=== PATIENT | male | born 1955 | race Caucasian/White ===

== ENCOUNTER → 2024-07-30 10:41 | Outpatient (REF) | payer MEDICARE, OTHER, SELFPAY | LOC: REG 10:41 | PROVIDERS: ATTENDING PHYSICIAN Family Medicine | DX: M25.561 Pain in right knee (principal) | CPT/HCPCS: 73564 ==

== ENCOUNTER → 2024-11-01 09:38 | Outpatient (REF) | payer MEDICARE, SELFPAY | LOC: REG 09:38 | PROVIDERS: ATTENDING PHYSICIAN Family Medicine | DX: F25.9 Schizoaffective disorder, unspecified (principal) | CPT/HCPCS: 93005 ==

== ENCOUNTER 2024-11-06 16:49 | Inpatient (IN) | payer MEDICARE, OTHER, SELFPAY ==
[2024-11-06] VITALS (11 sets, daily range): BP systolic 137–174; BP diastolic 66–139
--- NOTE | 2024-11-06 12:59 | ED.GENMED ---
History of Present Illness
General
Chief Complaint: Cough
Source: patient and records
Time Seen by Provider: 11/06/24 12:55
History of Present Illness
History of Present Illness:
69-year-old male with past medical history of schizoaffective disorder and traumatic brain injury, previous alcohol abuse presenting to the ER from his care facility for evaluation of cough, increased blood pressure, fatigue and generalized weakness
over the last 24 hours. Patient reportedly recently eloped from the facility and had been living in the [facility]. Presently patient has no concerns other than stating 'I feel as if I am broken everywhere'. Patient denies any chest pain,
palpitations, shortness of breath, exertional dyspnea, orthopnea, reported fevers or chills, abdominal pain, nausea, vomiting or any other concerns.
Past History
Past History
ED Past Medical History: Psychiatric
ED Past Surgical History: None
Social History
Tobacco: Former smoker
Alcohol: Former
Drug: None
Personal: Single
Living: [facility]
Review of Systems
Review of Systems
All Other Systems: ROS reviewed and negative except as documented in HPI and ROS
Phy Exam
Physical Exam
Physical Exam:
GENERAL: Alert , in no apparent distress, appears older than stated age
HEAD: Normocephalic atraumatic
EYE: conjunctiva clear
NECK: Supple
ENT: o/p clr, mmm.
CARDIAC: Regular rate and rhythm
LUNGS: Rhonchorous lung sounds right mid to upper lung, no acute respiratory distress, no wheezes/rales
NEUROLOGICAL: Alert and oriented
SKIN: Warm and dry, skin intact.
MUSCULOSKELETAL: well perfused.
PSYCH: Normal and appropriate interaction.
Scores
Heart Failure Risk
Heart Failure Risk Score: Not Applicable
Heart Score for Chest Pain Patients
STEMI patient?: Not applicable
Withdrawal Assessment of Alcohol
Withdrawal Assessment Completed?: Not applicable
Course
Orders/Labs/Results
Orders:
Orders
11/06/24 12:50
Complete Blood Count/With Diff Urgent
Comprehensive Metabolic Panel Urgent
Glycohemoglobin (HgbA1c) Urgent
Lyme Progressive Urgent
11/06/24 12:56
CR Chest - 2 Views Urgent
Comment:
Reason For Exam: cough
11/06/24 13:10
COVID-19 Antigen Urgent
Source: Nasal Swab
Influenza A+B Rapid Molecular Urgent
KITA Source: Nasal Swab
Specimen Description:
11/06/24 15:36
Cefepime HCl [Maxipime] 2,000 mg IV NOW STA
Sterile Water [Sterile Water For Injection] 10 ml IV ONCE@1536 ONE
11/06/24 15:40
Add On- LAB Urgent
Tests Added?: [id number]
11/06/24 15:45
Ipratropium/Albuterol Sulfate [Duoneb] 3 ml INH R NOW ONE
11/06/24 15:46
Cefepime HCl [Maxipime] 2,000 mg .ROUTE .STK-MED ONE
11/06/24 16:00
Flush (0.9% Sodium Chloride) [Flush (Nss)] See Dose Instructions IV PER PROTOCOL
Abnormal Lab Results
11/06/24
12:50
WBC 16.6 H 10^3/uL
(4.8-10.8)
MCHC 32.3 L g/dL
(33.0-37.0)
RDW 14.8 H %
(11.5-14.5)
Abs Immat Gran (auto) 0.1 H 10^3/uL
(0-0.05)
Absolute Neuts (auto) 13.2 H 10^3/uL
(1.4-6.5)
Absolute Lymphs (auto) 1.1 L 10^3/uL
(1.2-3.4)
Absolute Monos (auto) 1.9 H 10^3/uL
(0.1-0.6)
Neutrophils % 79.9 H %
(42.2-75.2)
Lymphocytes % 6.8 L %
(20.5-51.1)
Monocytes % 11.6 H %
(1.7-9.3)
Creatinine 0.6 L mg/dL
(0.7-1.3)
Glucose 200 H mg/dl
(70-99)
11/06/24 12:50
11/06/24 12:50
Vital Signs
Initial and Last Documented VS:
Initial Vital Signs
Temp Pulse Resp BP Pulse Ox
98.2 F 86 18 162/139 100
11/06/24 12:51 11/06/24 12:51 11/06/24 12:51 11/06/24 12:51 11/06/24 12:51
Last Documented Vital Signs
Temp Pulse Resp BP Pulse Ox
98.2 F 86 18 161/83 99
11/06/24 12:51 11/06/24 12:51 11/06/24 12:51 11/06/24 15:00 11/06/24 15:00
MDM/Problems Addressed
Differential Diagnosis Includes:
COVID, flu, pneumonia, viral syndrome, bronchitis, Lyme, less concern for PE
MDM/Problems Addressed:
69-year-old male presenting to the emergency department for evaluation of reported cough and generalized fatigue over the last 24 hours. No cough appreciated on exam here. Otherwise hemodynamically stable. Will check labs, COVID/flu and chest
x-ray. Disposition pending
Chronic conditions affecting care: Psychiatric illness
*Radiology
Radiology exam reviewed: preliminary read by ED provider (Questionable left lower lobe lung infiltrate)
*Pulse Oximetry
Patient hypoxic: no
*Critical Care Note
Total Time (30-74mins, 75-104mins- exclusive of procedures): Not Applicable
Data Reviewed
Review of Other/Old Records Reveals: Records
Patient Management
Discussion with other providers: Hospitalist
Escalation/DeEscalation of care consider admission/obs:
Patient's chest x-ray shows a suspected left lower lung infiltrate. On reevaluation he is now having a more pronounced cough combined with wheezing. Given his leukocytosis combined with past medical history of COPD we will plan for IV antibiotics
with Maxipime and admission to hospitalist service. I did also order the patient a DuoNeb breathing treatment.
ED Attending Note
-
Portions of this chart may have been created with voice recognition software.� Occasional wrong word or��sound alike� substitutions may have occurred due to the inherent limitations of voice recognition software.
Discharge Plan
Departure
Patient Disposition: Admit
Date of Disposition: 11/06/24
Time of Disposition: 15:29
Presentation/result/management discussed w/ accepting MD/DO: Hospitalist
Discharge Problem:
Pneumonia, Acute exacerbation of chronic obstructive pulmonary disease
Prescriptions:
No Action
polyethylene glycol 3350 [Miralax] 17 gram Powder In Packet
17 g PO DAILYPRN PRN (Reason: constipation)
alendronate [Fosamax] 70 mg Tablet
70 mg PO WE
clonazepam 0.5 mg Tablet
0.5 mg PO BID
hydroxyzine pamoate 50 mg Capsule
50 mg PO HS
levothyroxine [Synthroid] 100 mcg Tablet
100 mcg PO DAILY
mirtazapine 15 mg Tablet
15 mg PO HS
alum-mag hydroxide-simeth [Kelly-Lanta] 200-200-20 mg/5 mL Suspension
15 ml PO DAILYPRN PRN (Reason: gi upset)
lithium carbonate 300 mg Tablet
300 mg PO HS
aripiprazole [Abilify] 30 mg Tablet
30 mg PO DAILY
bupropion HCl [Wellbutrin XL] 150 mg Tablet Extended Release 24 Hr
150 mg PO DAILY
clozapine 50 mg Tablet
50 mg PO HS
Calcium Plus Vitamin D3 250 mg tablet
1 tab PO BID
Rx Instructions:
250mg and d3 125mg
acetaminophen [Tylenol] 325 mg Tablet
650 mg PO Q6HPRN PRN (Reason: mild pain)
clonazepam 1 mg Tablet
0.5 mg PO BIDPRN PRN (Reason: anixety)
Referrals:
UNKNOWN,NO INTERVIEW [Family Provider] -
Interventions
Interventions:
*General Assessment Last Done: 11/06/24 12:51
*Neglect/Abuse Screening Last Done: 11/06/24 12:51
*ED- Fall Risk Assessment Last Done: 11/06/24 14:59
*ED COVID-19 Vaccine History Last Done: 11/06/24 12:51
ED- Pulmonary Assessment Last Done: 11/06/24 12:51
Discharge Date and Time
Print Language: WOLOF
[2024-11-06 13:28] LABS: % Basophils 0.4 % (0-2); % Eosinophils 0.8 % (0-6); % Immature Granulocytes 0.5 % (0-0.5); % Lymphocytes 6.8 % (20.5-51.1); % Monocytes 11.6 % (1.7-9.3); % Neutrophils 79.9 % (42.2-75.2); Absolute Basophils 0.1 10^3/uL (0-0.2); Absolute Eosinophils 0.1 10^3/uL (0-0.7); Absolute Immature Granulocytes 0.1 10^3/uL (0-0.05); Absolute Lymphocytes 1.1 10^3/uL (1.2-3.4); Absolute Monocytes 1.9 10^3/uL (0.1-0.6); Absolute Neutrophils 13.2 10^3/uL (1.4-6.5); Hematocrit 40.6 % (39.0-52.0); Hemoglobin 13.1 g/dL (13.0-18.0); Mean Corp Hgb Conc. 32.3 g/dL (33.0-37.0); Mean Corpuscular Hgb 27.1 pg (27.0-31.0); Mean Corpuscular Volume 83.9 fL (80.0-94.0); Mean Platelet Volume 9.7 fL (7.4-10.4); Nucleated Red Blood Cells % 0 % (-); Platelet Count 231 10^3/uL (130-400); Red Blood Cell Count 4.84 10^6/uL (4.70-6.10); Red Cell Dist. Width 14.8 % (11.5-14.5); White Blood Cell Count 16.6 10^3/uL (4.8-10.8)
[2024-11-06 13:50] LABS: ALT (SGPT) 25 U/L (0-50); AST (SGOT) 28 U/L (17-59); Alkaline Phosphatase 96 U/L (38-126); Blood Urea Nitrogen 13 mg/dl (9-20); Calcium 9.6 mg/dl (8.4-10.2); Carbon Dioxide 24 mmol/L (22-30); Chloride 102 mmol/L (98-107); Glucose 200 mg/dl (70-99); Potassium 4.9 mmol/L (3.5-5.1); Sodium 138 mmol/L (135-145); Total Bilirubin 0.7 mg/dl (0.2-1.3); Total Protein 6.9 g/dl (6.3-8.2); eGFR > 60.00
[2024-11-06 13:55] LABS: COVID-19 Antigen Negative (Negative)
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
[2024-11-06] MEDS: DUONEB 3 ML INH ×2 (15:43→20:04)
[2024-11-06] MEDS: STERILE WATER FOR INJECTION 10 ML IV (15:43)
[2024-11-06] MEDS: MAXIPIME 2000 MG IV (15:46)
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
[2024-11-06] MEDS: LOVENOX 40 MG SC (19:43)
[2024-11-06] MEDS: VIBRAMYCIN 260 MG IV (19:43)
[2024-11-06] MEDS: OSCAL 500 + D 250 MG PO (20:40)
[2024-11-06] MEDS: KLONOPIN 0.5 MG PO (20:43)
[2024-11-06 21:22] LABS: Lithium 0.3 mmol/L (0.6-1.2); Magnesium 1.9 mg/dl (1.6-2.3)
[2024-11-06 21:48] LABS: TSH Reflex To Free T4 0.56 uIU/ml (0.47-4.68)
[2024-11-06] MEDS: ATARAX 50 MG PO (22:52)
[2024-11-06] MEDS: ESKALITH REGULAR RELEASE 300 MG PO (22:54)
[2024-11-06] MEDS: CLOZARIL 50 MG PO (22:54)
[2024-11-06] MEDS: REMERON 15 MG PO (22:55)
[2024-11-07] MEDS: SYNTHROID 100 MCG PO (06:00)
[2024-11-07] MEDS: FOSAMAX 70 MG PO (06:01)
[2024-11-07 06:04] VITALS: BP 139/76
[2024-11-07] MEDS: MAXIPIME 1000 MG IV (06:47)
[2024-11-07] MEDS: STERILE WATER FOR INJECTION 10 ML IV ×2 (06:50→10:53)
[2024-11-07] MEDS: VIBRAMYCIN 260 MG IV (06:53)
[2024-11-07 07:09] LABS: % Basophils 0.3 % (0-2); % Immature Granulocytes 0.7 % (0-0.5); % Lymphocytes 9.6 % (20.5-51.1); % Monocytes 13.3 % (1.7-9.3); % Neutrophils 75.1 % (42.2-75.2); Absolute Basophils 0.1 10^3/uL (0-0.2); Absolute Eosinophils 0.2 10^3/uL (0-0.7); Absolute Immature Granulocytes 0.1 10^3/uL (0-0.05); Absolute Lymphocytes 1.7 10^3/uL (1.2-3.4); Absolute Monocytes 2.3 10^3/uL (0.1-0.6); Absolute Neutrophils 13.2 10^3/uL (1.4-6.5); Hematocrit 36.2 % (39.0-52.0); Hemoglobin 12.2 g/dL (13.0-18.0); Mean Corp Hgb Conc. 33.7 g/dL (33.0-37.0); Mean Corpuscular Hgb 26.9 pg (27.0-31.0); Mean Corpuscular Volume 79.9 fL (80.0-94.0); Mean Platelet Volume 9.8 fL (7.4-10.4); Nucleated Red Blood Cells % 0 % (-); Platelet Count 225 10^3/uL (130-400); Red Blood Cell Count 4.53 10^6/uL (4.70-6.10); Red Cell Dist. Width 14.4 % (11.5-14.5); White Blood Cell Count 17.6 10^3/uL (4.8-10.8)
[2024-11-07 07:24] LABS: ALT (SGPT) 24 U/L (0-50); AST (SGOT) 25 U/L (17-59); Alkaline Phosphatase 96 U/L (38-126); Blood Urea Nitrogen 15 mg/dl (9-20); Carbon Dioxide 22 mmol/L (22-30); Chloride 104 mmol/L (98-107); Glucose 148 mg/dl (70-99); Potassium 4.7 mmol/L (3.5-5.1); Sodium 137 mmol/L (135-145); Total Bilirubin 0.9 mg/dl (0.2-1.3); Total Protein 6.6 g/dl (6.3-8.2); eGFR > 60.00
[2024-11-07] MEDS: DUONEB 3 ML INH ×3 (07:40→14:51)
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
[2024-11-07 08:55] LABS: Glycohemoglobin (HgbA1c) 5.9 % (4.0-5.6)
[2024-11-07] MEDS: WELLBUTRIN XL (24 hour extended release) 150 MG PO (08:55)
[2024-11-07] MEDS: KLONOPIN 0.5 MG PO ×2 (08:55→21:04)
[2024-11-07] MEDS: OSCAL 500 + D 250 MG PO ×2 (08:55→21:05)
[2024-11-07 09:01] VITALS: BP 148/75
[2024-11-07] MEDS: ABILIFY 30 MG PO (09:08)
[2024-11-07 09:14] VITALS: BP 148/75
[2024-11-07] MEDS: ROCEPHIN 1000 MG IV (10:52)
--- NOTE | 2024-11-07 11:01 | WOUNDNOTE ---
[facility] RN note: Patient admitted with pneumonia
See H&P for complete history.
PMH: Traumatic amputation of left arm, osteoporosis, ETOH, schizoaffective disorder, pica.
Wound Location and type/assessment: Patient admitted with left hip stage 1 PI. Patient is a poor historian regarding his appetite. He declined to turn or participate in assessment.
Pressure redistribution devices in place: Bed ordered from [facility], pref air bed if possible, patient declines further interventions for off-loading.
Plan: Left hip wound covered with foam. TT Dr. Foster to update that patient had refused full skin assessment and that a bed was ordered for him. RN, Kentrell given update. Updated care plan and will follow as needed.
Note to case management of equipment requested for discharge:
Recommend follow up at wound care center upon discharge.
[2024-11-07 11:21] VITALS: BP 155/77
--- NOTE | 2024-11-07 14:13 | CM ---
Addendum entered by Ksenia Dejesus 11/07/24 14:59:
Family Physician: Asif Salmeron DO; [address] [place] [address], [place] [address]
Left a voice mail for Admissions Office to update health record
Original Note:
Patient resides in a nursing home:
[facility]
[address] [facility];

Pharmacy verified: [facility], [address], [place] [address], [place] [address];
Family Physician: Asif Salmeron DO; [address] [place] [address], [id number]
Per caregiver/RN, Kasey, patient has private single room/bedroom; residents share bathroom; Independent w/ Personal Care but needs Prompting
PLOF: ambulated without a device; able to go up/down stairs if needed; they keep him on the 1st floor (Elopement Risk)
No DME
No SNF history
Transport: Ambulance
If medications are changed, requested that member of care team call [facility] Nursing staff before discharged @ # [phone]
Plan: Return to [facility] when medically stable via ambulance
[2024-11-07 16:20] VITALS: BP 163/85; BMI 15.9
[2024-11-07] MEDS: LOVENOX 40 MG SC (17:34)
[2024-11-07] MEDS: DUONEB INH (20:11)
[2024-11-07] MEDS: ESKALITH REGULAR RELEASE 300 MG PO (21:04)
[2024-11-07] MEDS: VIBRAMYCIN 100 MG PO (21:04)
[2024-11-07] MEDS: ATARAX 50 MG PO (21:07)
[2024-11-07] MEDS: REMERON 15 MG PO (21:07)
[2024-11-07] MEDS: CLOZARIL 50 MG PO (21:15)
[2024-11-07 23:10] VITALS: BP 142/74
[2024-11-08] MEDS: SYNTHROID 100 MCG PO (05:49)
[2024-11-08 07:31] LABS: % Basophils 0.3 % (0-2); % Eosinophils 1.3 % (0-6); % Immature Granulocytes 0.6 % (0-0.5); % Lymphocytes 9.9 % (20.5-51.1); % Monocytes 11.5 % (1.7-9.3); % Neutrophils 76.4 % (42.2-75.2); Absolute Basophils 0.1 10^3/uL (0-0.2); Absolute Eosinophils 0.2 10^3/uL (0-0.7); Absolute Immature Granulocytes 0.1 10^3/uL (0-0.05); Absolute Lymphocytes 1.7 10^3/uL (1.2-3.4); Absolute Neutrophils 13.2 10^3/uL (1.4-6.5); Hematocrit 37.5 % (39.0-52.0); Hemoglobin 12.4 g/dL (13.0-18.0); Mean Corp Hgb Conc. 33.1 g/dL (33.0-37.0); Mean Corpuscular Hgb 27.4 pg (27.0-31.0); Mean Platelet Volume 9.9 fL (7.4-10.4); Nucleated Red Blood Cells % 0 % (-); Platelet Count 270 10^3/uL (130-400); Red Blood Cell Count 4.52 10^6/uL (4.70-6.10); Red Cell Dist. Width 14.4 % (11.5-14.5); White Blood Cell Count 17.3 10^3/uL (4.8-10.8)
[2024-11-08 07:59] LABS: ALT (SGPT) 21 U/L (0-50); AST (SGOT) 21 U/L (17-59); Albumin 3.6 g/dl (3.5-5.0); Alkaline Phosphatase 97 U/L (38-126); Blood Urea Nitrogen 17 mg/dl (9-20); Calcium 9.3 mg/dl (8.4-10.2); Carbon Dioxide 28 mmol/L (22-30); Chloride 101 mmol/L (98-107); Estimated Creatinine Clearance 76 ml/min; Glucose 126 mg/dl (70-99); Potassium 4.3 mmol/L (3.5-5.1); Sodium 137 mmol/L (135-145); Total Bilirubin 0.9 mg/dl (0.2-1.3); Total Protein 6.5 g/dl (6.3-8.2); eGFR > 60.00
[2024-11-08 08:00] VITALS: BP 125/66
[2024-11-08] MEDS: DUONEB 3 ML INH ×4 (08:02→19:30)
[2024-11-08] MEDS: VIBRAMYCIN 100 MG PO ×2 (08:39→20:00)
[2024-11-08] MEDS: ABILIFY 30 MG PO (08:39)
[2024-11-08] MEDS: OSCAL 500 + D 250 MG PO ×2 (08:39→19:59)
[2024-11-08] MEDS: WELLBUTRIN XL (24 hour extended release) 150 MG PO (08:39)
[2024-11-08] MEDS: KLONOPIN 0.5 MG PO ×2 (08:40→19:58)
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
--- NOTE | 2024-11-08 10:41 | PN.CDI ---
CDI
- -
CDI:
Physician Documentation Request
Admit Date: 11/06/24 16:49
Dear Doctor Kristin,
Patient admitted for pneumonia. Progress noes include a diagnosis of 'Left hip stage I ulcer'
Physician documentation of the type and location of wounds is required for compliant documentation. Based on the above clinical findings and your assessment, please provide the following in your progress note:
Type (etiology) of ulcer:
- Diabetic ulcer
- Traumatic wound
- Pressure (decubitus) ulcer
- Other
Use of terms such as suspected, likely, concern for, or probable (associated with a specific diagnosis that is being evaluated, monitored, or treated as if it exists) are acceptable and can be coded in the inpatient setting, when documented at the
time of discharge.
Thank you,
Leigh LEARYN
CDI Specialist
tiger text
Please use your independent medical judgment in providing your response.
*Source: National Pressure Ulcer Advisory Panel (NPUAP)
[2024-11-08 12:06] LABS: Glucose - Point of Care 154 mg/dl (70-99)
[2024-11-08 12:11] LABS: Lyme Antibody Screen, EIA Negative (Negative)
[2024-11-08] MEDS: STERILE WATER FOR INJECTION 10 ML IV (12:35)
[2024-11-08] MEDS: ROCEPHIN 1000 MG IV (12:36)
--- NOTE | 2024-11-08 13:08 | PTCARENOTE ---
11/08/2024 DIABETES EDUCATION
I met with patient per MD request for monitor instruction. Explained to patient that his A1c and glucose values are diagnostic of pre-DM. Educated him to watch intake of excess carbohydrates and sweets. Patient did no seem to understand all that
I was explaining. I asked if he has an aide at home who helps him, he stated yes but then asked 'do I have a home'. I informed patient I am provided a glucose monitoring kit for his home use, asked that his aide help him administer, as he cannot
perform fingerstick due to L. arm amputation. and RN notified.
[2024-11-08] MEDS: NOVOLOG FLEXPEN-LOW RESISTANCE 1 UNITS SC (14:00)
--- NOTE | 2024-11-08 14:03 | CM ---
CM reviewed the chart notes and spoke with Selena nurse at [facility] where the patient resides. Discussed patient functional mobility prior to hospitalization. Patient is usually ambulatory without devise. Is difficult to motivate. What they
have found to assist in motivation is soda and chocolate cupcakes. Patient is a smoker, attending notified. 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 Patient does have chronic pain
in his knees and requires Tylenol daily. Patient resists assistance with most tasks. [facility] does not accept patients over weekend. Patient will need to be more mobile to return to residence. CM continues to be available to patient/family
and is monitoring medical plan for needs at discharge.
Plan: Discharge back to [facility] once medically stable and is able to ambulate at most with a cane.
[2024-11-08] MEDS: NICODERM TRANSDERMAL 14 MG TRANSDERM (14:51)
[2024-11-08 14:52] VITALS: BMI 15.9
[2024-11-08 16:00] VITALS: BP 128/69
[2024-11-08 16:57] LABS: Glucose - Point of Care 113 mg/dl (70-99)
[2024-11-08] MEDS: NOVOLOG FLEXPEN-LOW RESISTANCE SC (17:09)
[2024-11-08] MEDS: LOVENOX 40 MG SC (17:11)
[2024-11-08 21:36] LABS: Glucose - Point of Care 127 mg/dl (70-99)
[2024-11-08] MEDS: ATARAX 50 MG PO (21:39)
[2024-11-08] MEDS: REMERON 15 MG PO (21:40)
[2024-11-08] MEDS: CLOZARIL 50 MG PO (21:40)
[2024-11-08] MEDS: ESKALITH REGULAR RELEASE 300 MG PO (21:40)
[2024-11-08 23:25] VITALS: BP 133/67
[2024-11-09] MEDS: SYNTHROID 100 MCG PO (05:36)
[2024-11-09 06:45] LABS: % Basophils 0.4 % (0-2); % Eosinophils 2.4 % (0-6); % Immature Granulocytes 0.6 % (0-0.5); % Lymphocytes 11.4 % (20.5-51.1); % Monocytes 13.1 % (1.7-9.3); % Neutrophils 72.1 % (42.2-75.2); Absolute Basophils 0.1 10^3/uL (0-0.2); Absolute Eosinophils 0.3 10^3/uL (0-0.7); Absolute Immature Granulocytes 0.1 10^3/uL (0-0.05); Absolute Lymphocytes 1.6 10^3/uL (1.2-3.4); Absolute Monocytes 1.8 10^3/uL (0.1-0.6); Absolute Neutrophils 10.2 10^3/uL (1.4-6.5); Hemoglobin 11.5 g/dL (13.0-18.0); Mean Corp Hgb Conc. 32.9 g/dL (33.0-37.0); Mean Corpuscular Hgb 26.7 pg (27.0-31.0); Mean Corpuscular Volume 81.4 fL (80.0-94.0); Mean Platelet Volume 9.5 fL (7.4-10.4); Nucleated Red Blood Cells % 0 % (-); Platelet Count 267 10^3/uL (130-400); Red Cell Dist. Width 14.1 % (11.5-14.5); White Blood Cell Count 14.1 10^3/uL (4.8-10.8)
[2024-11-09 07:09] LABS: ALT (SGPT) 31 U/L (0-50); AST (SGOT) 39 U/L (17-59); Albumin 3.4 g/dl (3.5-5.0); Alkaline Phosphatase 101 U/L (38-126); Blood Urea Nitrogen 21 mg/dl (9-20); Calcium 9.5 mg/dl (8.4-10.2); Carbon Dioxide 25 mmol/L (22-30); Chloride 103 mmol/L (98-107); Estimated Creatinine Clearance 66 ml/min; Glucose 119 mg/dl (70-99); Potassium 4.4 mmol/L (3.5-5.1); Sodium 138 mmol/L (135-145); Total Bilirubin 0.7 mg/dl (0.2-1.3); Total Protein 6.3 g/dl (6.3-8.2); eGFR > 60.00
[2024-11-09] MEDS: DUONEB 3 ML INH ×4 (07:10→18:18)
[2024-11-09 07:30] VITALS: BP 137/74
[2024-11-09 07:31] LABS: Glucose - Point of Care 116 mg/dl (70-99)
[2024-11-09] MEDS: NOVOLOG FLEXPEN-LOW RESISTANCE SC ×3 (09:06→16:52)
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
[2024-11-09] MEDS: OSCAL 500 + D 250 MG PO ×2 (09:07→20:26)
[2024-11-09] MEDS: ABILIFY 30 MG PO (09:07)
[2024-11-09] MEDS: KLONOPIN 0.5 MG PO ×2 (09:07→20:31)
[2024-11-09] MEDS: WELLBUTRIN XL (24 hour extended release) 150 MG PO (09:08)
[2024-11-09] MEDS: VIBRAMYCIN 100 MG PO ×2 (09:08→20:26)
[2024-11-09] MEDS: NICODERM TRANSDERMAL 14 MG TRANSDERM (09:08)
--- NOTE | 2024-11-09 10:10 | PN.CDI ---
CDI
- -
CDI:
Physician Documentation Request
Admit Date: 11/06/24 16:49
Dear Doctor Kristin,
Patient admitted with left lower lobe pneumonia.
11/07 progress note states 'chronic COPD exacerbation'
11/08 progress note does not contain COPD exacerbation
Please clarify the following:
____ - COPD exacerbation was present on admission
____ - COPD exacerbation was ruled out
____ - Other
Use of terms such as suspected, likely, concern for, or probable (associated with a specific diagnosis that is being evaluated, monitored, or treated as if it exists) are acceptable and can be coded in the inpatient setting, when documented at the
time of discharge.
Thank you,
Leigh Yoo RN, BSN
CDI Specialist
tiger text
Please use your independent medical judgment in providing your response.
--- NOTE | 2024-11-09 10:15 | PN.CDI ---
CDI
- -
CDI:
Physician Documentation Request
Admit Date: 11/06/24 16:49
Dear Doctor Kristin,
Please review the following and provide your response in the progress notes.
Clinical Indicators:
Height: 6 ft
Weight:117 lbs
BMI:15.9
RD note on 11/08 states ' BMI assessment: underweight (<18.5)'
Please provide an associated diagnosis related to the abnormal BMI:
BMI < or = to 19
Underweight
Weight Loss
Cachectic
Anorexia
- BMI is not significant
- Other
Use of terms such as suspected, likely, concern for, or probable (associated with a specific diagnosis that is being evaluated, monitored, or treated as if it exists) are acceptable and can be coded in the inpatient setting, when documented at the
time of discharge.
Thank you,
Leigh Yoo RN, BSN
CDI Specialist
tiger text
Please use your independent medical judgment in providing your response.
[2024-11-09 12:11] VITALS: BP 135/69; PULSE 85; O2SAT 99
[2024-11-09 12:20] LABS: Glucose - Point of Care 125 mg/dl (70-99)
[2024-11-09] MEDS: ROCEPHIN 1000 MG IV (12:48)
[2024-11-09] MEDS: STERILE WATER FOR INJECTION 10 ML IV (12:48)
--- NOTE | 2024-11-09 15:06 | CM ---
Reviewed the chart notes and spoke with the patient at the bedside. Per PT/OT notes, improvement with mobility seen today. CM continues to be available to patient/family and is monitoring medical plan for needs at discharge.
Plan: Discharge to [facility] once medically stable. Per Skylar, nurse at facility, they can not accept over the weekend due to no one to do orders/paperwork.
Call report to: [phone]
Fax report to: [phone]
[2024-11-09 15:40] VITALS: BP 133/76
[2024-11-09 16:50] LABS: Glucose - Point of Care 115 mg/dl (70-99)
[2024-11-09] MEDS: GLUCOPHAGE 500 MG PO (16:53)
[2024-11-09] MEDS: LOVENOX 40 MG SC (16:53)
[2024-11-09] MEDS: REMERON 15 MG PO (23:15)
[2024-11-09] MEDS: ESKALITH REGULAR RELEASE 300 MG PO (23:15)
[2024-11-09] MEDS: CLOZARIL 50 MG PO (23:15)
[2024-11-09] MEDS: ATARAX 50 MG PO (23:15)
[2024-11-09 23:30] VITALS: BP 134/73
[2024-11-10] MEDS: SYNTHROID 100 MCG PO (06:19)
[2024-11-10] MEDS: DUONEB 3 ML INH ×4 (07:24→19:29)
[2024-11-10 07:30] VITALS: BP 115/70
[2024-11-10 07:46] LABS: % Basophils 0.6 % (0-2); % Eosinophils 4.8 % (0-6); % Immature Granulocytes 0.7 % (0-0.5); % Lymphocytes 15.9 % (20.5-51.1); Absolute Basophils 0.1 10^3/uL (0-0.2); Absolute Eosinophils 0.5 10^3/uL (0-0.7); Absolute Immature Granulocytes 0.1 10^3/uL (0-0.05); Absolute Lymphocytes 1.7 10^3/uL (1.2-3.4); Absolute Monocytes 1.4 10^3/uL (0.1-0.6); Hematocrit 34.4 % (39.0-52.0); Hemoglobin 11.5 g/dL (13.0-18.0); Mean Corp Hgb Conc. 33.4 g/dL (33.0-37.0); Mean Corpuscular Hgb 26.9 pg (27.0-31.0); Mean Corpuscular Volume 80.4 fL (80.0-94.0); Mean Platelet Volume 9.4 fL (7.4-10.4); Nucleated Red Blood Cells % 0 % (-); Platelet Count 312 10^3/uL (130-400); Red Blood Cell Count 4.28 10^6/uL (4.70-6.10); Red Cell Dist. Width 14.1 % (11.5-14.5); White Blood Cell Count 10.8 10^3/uL (4.8-10.8)
[2024-11-10 07:48] LABS: Glucose - Point of Care 106 mg/dl (70-99)
[2024-11-10] MEDS: NICODERM TRANSDERMAL 14 MG TRANSDERM (08:35)
[2024-11-10] MEDS: VIBRAMYCIN 100 MG PO ×2 (08:36→20:50)
[2024-11-10] MEDS: GLUCOPHAGE 500 MG PO ×2 (08:36→17:01)
[2024-11-10] MEDS: WELLBUTRIN XL (24 hour extended release) 150 MG PO (08:36)
[2024-11-10] MEDS: KLONOPIN 0.5 MG PO ×2 (08:36→20:56)
[2024-11-10] MEDS: OSCAL 500 + D 250 MG PO ×2 (08:36→20:50)
[2024-11-10] MEDS: ABILIFY 30 MG PO (08:36)
[2024-11-10] MEDS: NOVOLOG FLEXPEN-LOW RESISTANCE SC ×3 (08:41→16:40)
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
[2024-11-10] MEDS: OMNICEF 300 MG PO ×2 (09:16→20:51)
[2024-11-10 11:58] LABS: Glucose - Point of Care 136 mg/dl (70-99)
[2024-11-10 15:25] VITALS: BP 108/72
[2024-11-10 16:40] LABS: Glucose - Point of Care 102 mg/dl (70-99)
[2024-11-10] MEDS: LOVENOX 40 MG SC (17:01)
[2024-11-10 21:49] LABS: Glucose - Point of Care 116 mg/dl (70-99)
[2024-11-10] MEDS: ESKALITH REGULAR RELEASE 300 MG PO (22:34)
[2024-11-10] MEDS: CLOZARIL 50 MG PO (22:35)
[2024-11-10] MEDS: REMERON 15 MG PO (22:35)
[2024-11-10] MEDS: ATARAX 50 MG PO (22:36)
[2024-11-10 23:12] VITALS: BP 132/60
[2024-11-11] MEDS: SYNTHROID 100 MCG PO (06:08)
[2024-11-11 07:10] LABS: Glucose - Point of Care 112 mg/dl (70-99)
[2024-11-11] MEDS: DUONEB 3 ML INH ×3 (07:16→19:44)
[2024-11-11 07:20] VITALS: BP 136/67
[2024-11-11] MEDS: NOVOLOG FLEXPEN-LOW RESISTANCE SC ×3 (07:54→17:17)
[2024-11-11] MEDS: OMNICEF 300 MG PO ×2 (09:02→18:35)
[2024-11-11] MEDS: WELLBUTRIN XL (24 hour extended release) 150 MG PO (09:02)
[2024-11-11] MEDS: NICODERM TRANSDERMAL 14 MG TRANSDERM (09:02)
[2024-11-11] MEDS: GLUCOPHAGE 500 MG PO ×2 (09:02→17:15)
[2024-11-11] MEDS: ABILIFY 30 MG PO (09:02)
[2024-11-11] MEDS: KLONOPIN 0.5 MG PO ×2 (09:02→22:25)
[2024-11-11] MEDS: VIBRAMYCIN 100 MG PO ×2 (09:03→18:35)
[2024-11-11] MEDS: OSCAL 500 + D 250 MG PO ×2 (09:03→22:25)
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
[2024-11-11 12:15] LABS: Glucose - Point of Care 110 mg/dl (70-99)
[2024-11-11 15:20] VITALS: BP 133/78
[2024-11-11] MEDS: DUONEB INH ×2 (15:33→15:41)
[2024-11-11] MEDS: LOVENOX 40 MG SC (17:15)
[2024-11-11 17:17] LABS: Glucose - Point of Care 121 mg/dl (70-99)
[2024-11-11 21:38] LABS: Glucose - Point of Care 133 mg/dl (70-99)
[2024-11-11] MEDS: ATARAX 50 MG PO (22:25)
[2024-11-11] MEDS: CLOZARIL 50 MG PO (22:25)
[2024-11-11] MEDS: REMERON 15 MG PO (22:25)
[2024-11-11] MEDS: ESKALITH REGULAR RELEASE 300 MG PO (22:25)
[2024-11-11 23:07] VITALS: BP 128/77
[2024-11-12] MEDS: SYNTHROID 100 MCG PO (06:07)
[2024-11-12 07:00] VITALS: BP 122/65
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
[2024-11-12] MEDS: DUONEB INH (07:42)
[2024-11-12 08:09] LABS: Glucose - Point of Care 163 mg/dl (70-99)
[2024-11-12] MEDS: ABILIFY 30 MG PO (08:33)
[2024-11-12] MEDS: WELLBUTRIN XL (24 hour extended release) 150 MG PO (08:33)
[2024-11-12] MEDS: GLUCOPHAGE 500 MG PO (08:33)
[2024-11-12] MEDS: NICODERM TRANSDERMAL 14 MG TRANSDERM (08:33)
[2024-11-12] MEDS: OSCAL 500 + D 250 MG PO (08:33)
[2024-11-12] MEDS: KLONOPIN 0.5 MG PO (08:34)
[2024-11-12] MEDS: NOVOLOG FLEXPEN-LOW RESISTANCE 1 UNITS SC (08:34)
--- NOTE | 2024-11-12 09:21 | CM ---
Addendum entered by Daisy Padron RN 11/12/24 09:40:
Skylar updated on change in medications: Dunoneb and Metformin. Attending sent rx's to [facility] pharmacy as requested by facility.
Addendum entered by Daisy Padron RN 11/12/24 09:38:
Per Kasey, patient will need to come back BLS.
Medical necessity and transport forms on chart.
Original Note:
Reviewed the chart notes and spoke with the patient at the bedside. IMM reviewed and signed. Per PT/OT notes, improvement with mobility. CM left voice message for Skylar regarding patient ready for discharge and need to know transportation
arrangements for back to [facility]. CM continues to be available to patient/family and is monitoring medical plan for needs at discharge.
Plan: Discharge to [facility] once medically stable.
Call report to: [phone]
Fax report to: [phone]
[2024-11-12] MEDS: DUONEB 3 ML INH (11:32)
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
[2024-11-12 11:56] LABS: Glucose - Point of Care 146 mg/dl (70-99)
[2024-11-12] MEDS: NOVOLOG FLEXPEN-LOW RESISTANCE SC (12:07)
[2024-11-12 12:34] VITALS: BP 130/76
== END 2024-11-12 13:10 | DRG 194 ==
LOC: 2 NORTH 16:49
PROVIDERS: Clinical Nurse Specialist Family Health; Physician Assistant Medical; ADMITTING PHYSICIAN Hospitalist; ATTENDING PHYSICIAN General Practice; EMERGENCY PHYSICIAN Emergency Medicine; FAMILY PHYSICIAN Family Medicine
DX: J18.9 Pneumonia, unspecified organism (principal); Z68.1 Body mass index [BMI] 19.9 or less, adult; L89.221 Pressure ulcer of left hip, stage 1; D72.829 Elevated white blood cell count, unspecified; M81.0 Age-related osteoporosis without current pathological fracture; E03.9 Hypothyroidism, unspecified; F17.210 Nicotine dependence, cigarettes, uncomplicated; F25.9 Schizoaffective disorder, unspecified; R63.6 Underweight; R73.03 Prediabetes; G47.00 Insomnia, unspecified; Z11.52 Encounter for screening for COVID-19; Z79.899 Other long term (current) drug therapy; Z79.84 Long term (current) use of oral hypoglycemic drugs; Z87.820 Personal history of traumatic brain injury
CPT/HCPCS: 71046; 80053; 80178; 82962; 83036; 83735; 84443; 85025; 86618; 87040; 87070; 87502; 87811; 94640; 97162; 97530

== ENCOUNTER 2025-02-17 19:39 | Emergency (ER) | payer MEDICARE, OTHER, SELFPAY ==
[2025-02-17 19:51] VITALS: BP 143/81
[2025-02-17 20:07] LABS: Hematocrit 39.5 % (39.0-52.0); Hemoglobin 13.0 g/dL (13.0-18.0); Mean Corp Hgb Conc. 32.9 g/dL (33.0-37.0); Mean Corpuscular Volume 83.9 fL (80.0-94.0); Nucleated Red Blood Cells % 0 % (-); Platelet Count 226 10^3/uL (130-400); Red Cell Dist. Width 13.9 % (11.5-14.5)
[2025-02-17 20:38] LABS: ALT (SGPT) 23 U/L (0-50); AST (SGOT) 40 U/L (17-59); Albumin 4.5 g/dl (3.5-5.0); Alkaline Phosphatase 66 U/L (38-126); Blood Urea Nitrogen 16 mg/dl (9-20); Calcium 9.7 mg/dl (8.4-10.2); Carbon Dioxide 25 mmol/L (22-30); Chloride 107 mmol/L (98-107); Glucose 132 mg/dl (70-99); Sodium 139 mmol/L (135-145); Total Protein 7.3 g/dl (6.3-8.2); eGFR > 60.00
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
== END 2025-02-17 22:51 | disposition home or self-care (01) ==
LOC: EMR 19:39
PROVIDERS: EMERGENCY PHYSICIAN Emergency Medicine
DX: R07.81 Pleurodynia (principal); J44.9 Chronic obstructive pulmonary disease, unspecified; K21.9 Gastro-esophageal reflux disease without esophagitis; F17.200 Nicotine dependence, unspecified, uncomplicated; Z87.820 Personal history of traumatic brain injury
CPT/HCPCS: 99284; 71111; 80053; 85025